=== PATIENT | male | born 1975 | race Caucasian/White ===

== ENCOUNTER 2022-12-21 12:21 | Outpatient (CLI) | payer OTHER | END 2022-12-21 23:59 | disposition critical access hospital (66) | LOC: EMS 12:21 | DX: M25.512 Pain in left shoulder (principal); V43.61XA Car passenger injured in collision with sport utility vehicle in traffic accident, initial encounter; Y92.414 Local residential or business street as the place of occurrence of the external cause | CPT/HCPCS: A0425; A0429 ==

== ENCOUNTER 2022-12-21 12:46 | Emergency (ER) | payer OTHER ==
[2022-12-21] MEDS ORDERED: IBUPROFEN 800 MG TABLET PO STA (13:00)
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
[2022-12-21 13:06] VITALS: BP 132/85
== END 2022-12-21 13:11 | disposition home or self-care (01) ==
LOC: EDUNIT# → ED 12:46
DX: S46.912A Strain of unspecified muscle, fascia and tendon at shoulder and upper arm level, left arm, initial encounter (principal); V89.2XXA Person injured in unspecified motor-vehicle accident, traffic, initial encounter; Y92.410 Unspecified street and highway as the place of occurrence of the external cause
CPT/HCPCS: 99283; A9270